=== PATIENT | female | born 1980 ===

== ENCOUNTER 2022-12-28 08:21 | Outpatient (CLI) | payer OTHER | END 2022-12-28 08:35 | disposition home or self-care (01) | LOC: PRENATAL 08:21 | PROVIDERS: ATTEND Obstetrics & Gynecology Maternal & Fetal Medicine | DX: O36.80X0 Pregnancy with inconclusive fetal viability, not applicable or unspecified (principal); Z36.82 Encounter for antenatal screening for nuchal translucency; O09.529 Supervision of elderly multigravida, unspecified trimester; O34.219 Maternal care for unspecified type scar from previous cesarean delivery; O09.219 Supervision of pregnancy with history of pre-term labor, unspecified trimester; O34.10 Maternal care for benign tumor of corpus uteri, unspecified trimester; Z3A.11 11 weeks gestation of pregnancy ==

== ENCOUNTER 2023-02-26 08:06 | Outpatient (CLI) | payer OTHER ==
[2023-02-27] MEDS ORDERED: ZYRTEC10 MG PO (09:09)
[2023-02-27] MEDS ORDERED: PRENATAL TABLE1 EAC4 PO (09:09)
[2023-02-27] MEDS ORDERED: ADULT LOW DOSE81 M1 PO (09:09)
[2023-02-27] MEDS ORDERED: INDOMETHACIN25 MG PO (17:45)
== END 2023-02-26 08:56 | disposition home or self-care (01) ==
LOC: PRENATAL 08:06
PROVIDERS: ATTEND Obstetrics & Gynecology Maternal & Fetal Medicine
DX: O35.9XX0 Maternal care for (suspected) fetal abnormality and damage, unspecified, not applicable or unspecified (principal); O35.3XX0 Maternal care for (suspected) damage to fetus from viral disease in mother, not applicable or unspecified; O09.529 Supervision of elderly multigravida, unspecified trimester; O34.10 Maternal care for benign tumor of corpus uteri, unspecified trimester; O44.00 Complete placenta previa NOS or without hemorrhage, unspecified trimester; O09.219 Supervision of pregnancy with history of pre-term labor, unspecified trimester; Z3A.20 20 weeks gestation of pregnancy

== ENCOUNTER 2023-02-27 08:05 | Day surgery (SDC) | payer OTHER ==
[~2023-02-27] VITALS: Ht 157.5 cm; Wt 119.7 kg
[2023-02-27] MEDS ORDERED: ZYRTEC10 MG PO (09:09)
[2023-02-27] MEDS ORDERED: PRENATAL TABLE1 EAC4 PO (09:09)
[2023-02-27] MEDS ORDERED: ADULT LOW DOSE81 M1 PO (09:09)
[2023-02-27 09:53] LABS: HEMATOCRIT 35.8 % (36.0-45.00); HEMOGLOBIN 12.6 g/dL (12.0-15.00); MEAN CORPUSCULAR HEMOGLOBIN 31.6 pg (27.00-32.0); MEAN CORPUSCULAR HGB CONC 35.1 g/dl (32.0-36.0); PLATELET COUNT 216 K/uL (150-450); RED BLOOD COUNT 3.98 M/uL (4.00-6.00); RED CELL DISTRIBUTION WIDTH 13.5 % (11.5-14.5)
[2023-02-27 10:23] LABS: INR < 0.93; PARTIAL THROMBOPLASTIN TIME 26.9 SECONDS (22.0-34.0); PROTHROMBIN TIME 9.8 SECONDS (9.0-11.5)
[2023-02-27] MEDS ORDERED: INDOMETHACIN25 MG PO (17:45)
== END 2023-02-27 22:55 | disposition home or self-care (01) ==
LOC: CIR.AMB 08:05 → LDR 08:05 → O/R 16:23 → EDSTATUS 17:45 → CIR.AMB 22:55 → O/R 22:55
PROVIDERS: ATTEND Obstetrics & Gynecology Maternal & Fetal Medicine
DX: O26.872 Cervical shortening, second trimester (principal); Z3A.20 20 weeks gestation of pregnancy; Z20.822 Contact with and (suspected) exposure to COVID-19

== ENCOUNTER 2023-03-15 14:36 | Outpatient (CLI) | payer OTHER ==
[~2023-03-15 14:36] MED LIST: ADULT LOW DOSE81 M1 PO; INDOMETHACIN25 MG PO; PRENATAL TABLE1 EAC4 PO; ZYRTEC10 MG PO
== END 2023-03-15 14:40 | disposition home or self-care (01) ==
LOC: PRENATAL 14:36
PROVIDERS: ATTEND Obstetrics & Gynecology Maternal & Fetal Medicine
DX: O09.529 Supervision of elderly multigravida, unspecified trimester (principal); O34.219 Maternal care for unspecified type scar from previous cesarean delivery; O09.219 Supervision of pregnancy with history of pre-term labor, unspecified trimester; O34.10 Maternal care for benign tumor of corpus uteri, unspecified trimester; O26.879 Cervical shortening, unspecified trimester; Z3A.22 22 weeks gestation of pregnancy

== ENCOUNTER 2023-03-27 10:27 | Outpatient (CLI) | payer OTHER | END 2023-03-27 10:28 | disposition home or self-care (01) | LOC: PRENATAL 10:27 | PROVIDERS: ATTEND Obstetrics & Gynecology Maternal & Fetal Medicine | DX: O26.849 Uterine size-date discrepancy, unspecified trimester (principal); O09.529 Supervision of elderly multigravida, unspecified trimester; O09.219 Supervision of pregnancy with history of pre-term labor, unspecified trimester; O34.10 Maternal care for benign tumor of corpus uteri, unspecified trimester; O34.219 Maternal care for unspecified type scar from previous cesarean delivery; Z3A.24 24 weeks gestation of pregnancy ==

== ENCOUNTER 2023-04-25 10:24 | Outpatient (CLI) | payer OTHER | END 2023-04-25 10:25 | disposition home or self-care (01) | LOC: PRENATAL 10:24 | PROVIDERS: ATTEND Obstetrics & Gynecology Maternal & Fetal Medicine | DX: O26.849 Uterine size-date discrepancy, unspecified trimester (principal); O09.529 Supervision of elderly multigravida, unspecified trimester; O34.219 Maternal care for unspecified type scar from previous cesarean delivery; O09.219 Supervision of pregnancy with history of pre-term labor, unspecified trimester; O34.10 Maternal care for benign tumor of corpus uteri, unspecified trimester; O26.879 Cervical shortening, unspecified trimester; O24.419 Gestational diabetes mellitus in pregnancy, unspecified control; Z3A.28 28 weeks gestation of pregnancy ==